=== PATIENT | female | born 1970 | race Caucasian/White ===

== ENCOUNTER → 2023-06-08 15:22 | Outpatient (REF) | payer OTHER, SELFPAY | LOC: HWRAD 15:22 | PROVIDERS: ATTENDING PHYSICIAN Otolaryngology; FAMILY PHYSICIAN Family Medicine | DX: J32.2 Chronic ethmoidal sinusitis (principal) | CPT/HCPCS: 70486 ==

== ENCOUNTER → 2023-08-30 15:20 | Outpatient (REF) | payer OTHER, SELFPAY | LOC: HWRAD 15:20 | PROVIDERS: ATTENDING PHYSICIAN Family Medicine | DX: Z71.3 Dietary counseling and surveillance (principal); M89.8X8 Other specified disorders of bone, other site; E78.2 Mixed hyperlipidemia; R73.03 Prediabetes | CPT/HCPCS: 76536 ==

== ENCOUNTER → 2024-09-17 10:55 | Outpatient (REF) | payer OTHER, SELFPAY | LOC: HWRAD 10:55 | PROVIDERS: ATTENDING PHYSICIAN Hospitalist; FAMILY PHYSICIAN Family Medicine | DX: J45.909 Unspecified asthma, uncomplicated (principal); M17.0 Bilateral primary osteoarthritis of knee | CPT/HCPCS: 71046; 73560; 73565 ==